=== PATIENT | male | born 1985 | race Caucasian/White ===

== ENCOUNTER 2023-03-23 07:51 | Outpatient (CLI) | payer BC, SELFPAY | END 2023-03-23 07:52 | disposition home or self-care (01) | LOC: NFLDREF 03-24 08:24 | PROVIDERS: PCP Internal Medicine; Referring Provider Internal Medicine; Visit Provider Internal Medicine | DX: I10 Essential (primary) hypertension (principal); Z12.5 Encounter for screening for malignant neoplasm of prostate; Z13.6 Encounter for screening for cardiovascular disorders | CPT/HCPCS: 80053; 80061; 84153 ==

== ENCOUNTER 2024-03-27 07:50 | Outpatient (CLI) | payer OTHER, SELFPAY | END 2024-03-27 07:51 | disposition home or self-care (01) | LOC: NFLDREF 15:57 | PROVIDERS: PCP Internal Medicine; Referring Provider Internal Medicine; Visit Provider Internal Medicine | DX: Z00.00 Encounter for general adult medical examination without abnormal findings (principal); K75.81 Nonalcoholic steatohepatitis (NASH); I10 Essential (primary) hypertension; Z12.5 Encounter for screening for malignant neoplasm of prostate; Z13.6 Encounter for screening for cardiovascular disorders | CPT/HCPCS: 80053; 80061; G0103 ==

== ENCOUNTER 2025-04-15 07:35 | Outpatient (CLI) | payer OTHER, SELFPAY | END 2025-04-15 07:36 | disposition home or self-care (01) | LOC: NFLDREF 04-17 13:22 | PROVIDERS: PCP Internal Medicine; Referring Provider Internal Medicine; Visit Provider Internal Medicine | DX: Z00.00 Encounter for general adult medical examination without abnormal findings (principal) | CPT/HCPCS: 80053; 80061 ==